=== PATIENT | female | born 1955 | race Caucasian/White ===

== ENCOUNTER → 2016-09-05 | Outpatient (CLI) | payer OTHER ==
[~2016-09-05] MED LIST: CALTRATE-600 W600 MG PO; COMPAZINE DPS5 MG PO; DECADRON-DPS4 MG PO; DEXAMETHASON2 MG PO; DIFLUCAN DPS150 MG PO; DULCOLAX-DPS10 MG PR; DURAGESIC DPS25 MCG TD; DURAGESIC50 MCG TD; FLEXERIL-DPS10 MG PO; HYDROCODONE 5MG/5 MG PO; INDERAL-DPS40 MG PO; KEFLEX-DPS500 MG PO; KEPPRA DPS500 MG PO; LEVAQUIN DPS750 MG PO; LINZESS145 MCG PO; LOVENOX DPS150 MG/ML SQ; MAALOX DPS30 ML PO; MEGACE DPS800 MG/20 PO; MIRALAX PACKET17 GM PO; MS CONTIN DPS15 MG PO; MSIR DPS15 MG PO; PRAVACHOL20 MG PO; PRILOSEC DPS20 MG PO; PROTONIX40 MG PO; PROZAC DPS20 MG PO; REMERON DPS15 MG PO; RITALIN-DPS5 MG PO; SENOKOT S1 TAB PO; SOLU-CORTEF100 MG PO; SURFAK DPS240 MG PO; TYLENOL DPS325 MG PO; VOTRIENT200 MG PO; WELLBUTRIN SR150 M1 PO; ZOFRAN4 M1 PO; ZOFRAN4 MG PO; [UNRECOGNIZED DRUG - OTHER] PO
== END | disposition home or self-care (01) ==
LOC: RAD.S 10:35
DX: C78.00 Secondary malignant neoplasm of unspecified lung (principal); C79.31 Secondary malignant neoplasm of brain; C79.51 Secondary malignant neoplasm of bone; C64.2 Malignant neoplasm of left kidney, except renal pelvis; R91.8 Other nonspecific abnormal finding of lung field

== ENCOUNTER 2016-09-06 13:08 | Inpatient (IN) | payer OTHER ==
[~2016-09-06] VITALS: Ht 175.3 cm; Wt 70.8 kg
--- NOTE | ~2016-09-06 | WND ---
ADMIT: 09/06/2016 RM/LOC: 302 [facility] MR#: [id number] [address] [address] [place] [address] Wound Care Clinic SEX: F AGE: 61 : 1955 DATE OF VISIT: 09/07/2016 TIME OF VISIT: 15 minutes. REASON FOR VISIT: Diagnosis of ulcers to her buttocks. HISTORY OF PRESENT ILLNESS: Brooklynn is a 61-year-old female, who was admitted through the emergency room yesterday with altered mental status secondary to urosepsis. She is currently residing at [facility] after recently being diagnosed with renal carcinoma with mets to the pelvis, brain, lungs, and retroperitoneum. Her daughter is currently at bedside and states that she fell recently and had horrible left hip pain and that is how she found out that she had the cancer. Her daughter is also aware that she does have some pressure injuries to her buttocks. Brooklynn currently denies any complaints of pain to the area unless she is moving around in bed. PAST MEDICAL HISTORY: 1. Depression. 2. Hyperlipidemia. 3. Gastroesophageal reflux. 4. History of pelvic ramus fracture. ALLERGIES: Penicillins, sulfa, and pseudoephedrine. CURRENT MEDICATIONS: 1. Caltrate 600 mg. 2. Dexamethasone 2 mg. 3. Inderal 40 mg. 4. Keppra 500 mg. 5. Linzess 145 mcg. 6. Megace 800 mg. 7. MiraLAX 17 g. 8. MS Contin 15 mg. 9. Paxil 20 mg. 10.Pravachol 20 mg. 11.Senokot. 12.Wellbutrin. 13.Lovenox. 14.NovoLog. 15.Duragesic 50 mcg patch. 16.Azactam. 17.Levaquin. 18.Levophed. 19.Protonix. SOCIAL HISTORY: Brooklynn is a 61-year-old, female. 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 She denies any tobacco use or alcohol use. FAMILY HISTORY: Negative for cancers. ADMIT: 09/06/2016 RM/LOC: 302 [facility] MR#: [id number] [address] [address] BROOKLYNN [place] [address] Wound Care Clinic SEX: F AGE: 61 : 1955 REVIEW OF SYSTEMS: She does report pain in that left lower extremity. She denies nausea, vomiting, or diarrhea. She denies chest pain, shortness of breath, or cough. PHYSICAL EXAMINATION: VITAL SIGNS: Blood pressure 94/60, pulse ox 94% on room air, pulse 94, respirations 11, and temperature 96.8. GENERAL: An alert 61-year-old female with a flat affect in no acute distress. She is examined in her bed in room #302. Assessment of her coccyx area reveals a full-thickness ulcer on the right and left side of her gluteal cleft measuring approximately 1 cm circumferential. Wound bed is yellow and dry. It is tender to palpation. There is no induration or fluctuance noted. No periwound erythema noted. ASSESSMENT: Quantity 2 stage III pressure injuries to the right and left side of gluteal cleft. PLAN: Staff will apply Sensi-Care to pressure injuries to the right and left- sided gluteal cleft 4 times daily and with any repositioning. They will apply a low air loss mattress overlay to her bed. They will reposition her every 2 hours from right to left side at a 30-degree tilt. I have asked that they please do not elevate the head of bed greater than 30 degrees for short amount of times with meals. WOCN will continue to follow while she is in the hospital. I would like to thank Dr. Trinidad for allowing us to participate in her care. Julianna Sanders APRN/ patty JOB #: [id number] CC: Desmond Guevara, Attending Physician Desmond Guevara, Family Physician
[~2016-09-06 13:08] MED LIST changes: -COMPAZINE DPS5 MG PO; -DIFLUCAN DPS150 MG PO; -KEFLEX-DPS500 MG PO; -LINZESS145 MCG PO; -MEGACE DPS800 MG/20 PO; -REMERON DPS15 MG PO; -RITALIN-DPS5 MG PO; -SOLU-CORTEF100 MG PO; -SURFAK DPS240 MG PO; -WELLBUTRIN SR150 M1 PO; -[UNRECOGNIZED DRUG - OTHER] PO
--- NOTE | 2016-09-11 09:04 | HP ---
ADMIT: 09/06/2016 RM/LOC: 302 [facility] MR#: [id number] [address] [address] [place]NN [facility]ON[facility]ALEZ [facility] [place] [address] History and Physical SEX: F AGE: 61 : 1955 Corrected: 09/07/2016 1135 eleazar DATE OF SERVICE: CHIEF COMPLAINT: Altered mental status. HISTORY OF PRESENT ILLNESS: Brooklynn is a 61-year-old white female, resident of [facility]. She went to the Oncology Clinic today and had an episode of altered mental status with unresponsiveness. Our clinic was contacted regarding possibility of a direct admission, but due to the fact she was a new patient and her past medical history was unknown, concerns regarding stability were noted, she ultimately was transferred to the ER for evaluation. On ER assessment, she was noted to have altered mental status and met criteria for sepsis. Chest x-ray and routine labs were obtained, and she was noted to meet UTI with sepsis criteria with known metastatic renal cell carcinoma and prior DVTs with elevated liver enzymes and hypokalemia and was started on IV antibiotics. Fluid boluses were administered, and she was admitted via sepsis protocols. At this time, she is awake and alert and very interactive and appropriate. She has a delayed speech and has to concentrate on responses, but appears to be in full control of her mental status. PAST MEDICAL HISTORY: Includes known metastatic renal cell carcinoma with mets to the pelvis, brain, lungs, and retroperitoneum with recent deep venous thromboses and a history of depression, hyperlipidemia, and reflux. MEDICATIONS: Listed and include: 1. Maalox. 2. Morphine. 3. Tylenol. 4. Zofran. 5. Bisac-Evac suppositories. 6. Cabozantinib. 7. Lovenox. 8. Fentanyl patch. 9. Omeprazole. 10.Dexamethasone. 11.Megace. 12.Paxil. 13.MiraLax. 14.Propranolol. 15.Calcium. 16.Levetiracetam. 17.Morphine. 18.Senna. 19.Pravastatin. 20.Linzess. ADMIT: 09/06/2016 RM/LOC: 302 [facility] MR#: [id number] [address] [address] YUDELKA YARELI BROOKLYN[place] [address] History and Physical SEX: F AGE: 61 : 1955 ALLERGIES: INCLUDE PENICILLIN AND SULFA. SOCIAL HISTORY: A 61-year-old white female. 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 She does not smoke and does no longer drink. States she used to drink socially when younger. FAMILY HISTORY: Noncontributory. REVIEW OF SYSTEMS: Remarkable for fatigue, previous cerebral hemorrhage with some delayed speech. She desires a full code at this time and appears to be competent and cognizant to make that decision. She has known metastatic renal cell and a prior pelvic fracture and DVTs along with some mild reflux. Remainder of review of systems is remarkable for severe depression with decreased appetite, and she has initiated therapy for that. PHYSICAL EXAMINATION: VITAL SIGNS: Include an initial temperature of 97.6, pulse 116, respiratory rate 15 with blood pressure 79/47. Current pulse 126, her blood pressure is 78/44. She is currently on vasopressors. GENERAL: On exam, she is alert, appears comfortable, lying in the bed, in no acute distress. HEENT: Pupils are reactive. Membranes are moist. HEART: Tachycardic without murmur. LUNGS: Clear. ABDOMEN: Soft with some minimal tenderness. No rigidity, guarding, or rebound. No hepatosplenomegaly. BREASTS, , AND RECTAL: Deferred. EXTREMITIES: Reveal some mild stasis dermatitis. No clubbing, cyanosis, or edema. NEURO: Grossly normal including light touch, strength, DTRs but of note her speech is slightly delayed, although she appears to be competent to make decisions. LABORATORY DATA: Labs include sodium 144, potassium 3.1, BUN 15, creatinine 1.1 with glucose 184, total protein 5.5, albumin 1.9. AST of 133, ALT is 31, magnesium 1.8. CPK 123, MB of 4.5 with troponin I of 0.113. INR is 1.7. White count 6.2, hemoglobin 14.6, platelet count 193,000. Lactic acid was 10.1 on ER assessment, it is down to 3.3 at this time. UA shows 25 wbc's with many bacteria. Chest x-ray shows no acute changes. ASSESSMENT: 1. Urinary tract infection with probable urosepsis. 2. Renal cell carcinoma with known metastatic lesions involving the brain, pelvis, lungs, and retroperitoneum. 3. Prior deep venous thrombosis. 4. Depression. 5. Elevated liver function tests. ADMIT: 09/06/2016 RM/LOC: 302 [facility] MR#: [id number] [address] [address] [place] [address] History and Physical SEX: F AGE: 61 : 1955 6. Hyperlipidemia. 7. Reflux. 8. Malnutrition. 9. Prior hemorrhagic cerebrovascular accident on old scans. PLAN: She is full code per the patient's request. She is currently on IV antibiotics and vasopressors. Critical-care consultation has been obtained. She has been started on the sepsis protocol. We will do Accu-Chek monitoring with sliding scale. We will proceed with further evaluation and management based on her course during the hospitalization. Desmond Guevara MD/ patty JOB #: [id number] CC: Desmond Guevara, Attending Physician Desmond Guevara, Family Physician Corrected: 09/07/2016 1135 eleazar
--- NOTE | 2016-09-11 10:29 | CO ---
ADMIT: 09/06/2016 RM/LOC: 302 [facility] MR#: [id number] [address] [address] [place] [address] Consultation SEX: F AGE: 61 : 1955 DATE OF CONSULTATION: 09/06/2016 ATTENDING PHYSICIAN: Desmond Guevara CONSULTING PHYSICIAN: Dandy Marcleino MD HISTORY OF PRESENT ILLNESS: This lady is admitted to the hospital with hypotensive shock from the ER. Nonsmoker, but has a rather significant medical history of wide spread metastatic renal cell carcinoma with bones, lung, brain with history of brain hemorrhage, seizure disorder, depression, hyperlipidemia and gastroesophageal reflux. She has had radiation to the brain and also to the acetabular area. She was getting prepared for possible nephrectomy. She does have DVT and has been on Lovenox at 1 mg/kg body weight subcutaneously daily. She is in the intensive care unit with the blood pressure in the 70s after 3 L of fluid resuscitation and started on levofloxacin and Rocephin also. Her laboratory investigation shows a sodium of 144, potassium was 3.1, but she is receiving 40 mEq of potassium from Dr. Guevara. Chloride 102, urea 15, creatinine 1.1, albumin 1.9, LDH 521, AST was 133, INR 1.7, lactate was 10.1, it has gone down to 3.1 after the fluid resuscitation. Her hemoglobin is 8.5, platelets 193, white count 6.2. Urine cloudy with white cells 25. On my evaluation, she is awake. Response was appropriate, but somewhat slow and informations were not accurate because she could not remember getting radiation to the head or to the acetabular area, which I recovered from the note from Dr. Sumit Trinidad on her dismissal from 01/26. The plan was for nephrectomy once she is stable. PHYSICAL EXAMINATION: EXTREMITIES: She has no edema. Her skin is dry and low turgor. There was no calf tenderness. LYMPH: Could not feel any lymphadenopathy. She is weak allover. RESPIRATIONS: Trachea is in the midline. CHEST: Clear. No heart murmur. ABDOMEN: Has several lumpy areas from subcu Lovenox. No distinct organomegaly. Bowel sounds present. DIAGNOSTIC DATA: Chest x-ray is clear. IMPRESSION: 1. Hypovolemic shock, possible urosepsis. 2. Metastatic renal cell carcinoma to the brain, lung, and bones. Status post radiation to the brain and to the acetabular are. 3. Depression. 4. Seizure disorder. 5. Deep vein thrombosis. 6. Hyperlipidemia. ADMIT: 09/06/2016 RM/LOC: 302 [facility] MR#: [id number] [address] [address] [place] [address] Consultation SEX: F AGE: 61 : 1955 7. Gastroesophageal reflux. PLAN: I am planning for another liter of fluid, and we will get her started on Levophed instead of dopamine because her heart rate is already in the 139 range with the blood pressure in the mid 70s. Her room air oxygen saturation was 90%-92%. She will be on oxygen. I will get a cortisol level. For the time being, I am going to give her stress dose steroid, changing the Rocephin to Zosyn in addition to the levofloxacin. We will add GI bleeding prophylaxis with Protonix. Overall prognosis seems very guarded and long-term prognosis is certainly poor. Discussed with Dr. Guevara. Discussed with the RN. Dandy Marcelino MD/ patty JOB #: [id number] CC: Desmond Guevara, Attending Physician Desmond Guevara, Family Physician Desmond Guevara MD
[2016-09-12] MEDS ORDERED: KEFLEX-DPS500 MG PO (12:01)
[2016-09-12] MEDS ORDERED: [UNRECOGNIZED DRUG - OTHER] PO (12:02)
[2016-09-12] MEDS ORDERED: COMPAZINE DPS5 MG PO (12:03)
[2016-09-12] MEDS ORDERED: SURFAK DPS240 MG PO (12:03)
[2016-09-12] MEDS ORDERED: WELLBUTRIN SR150 M1 PO (12:04)
[2016-09-12] MEDS ORDERED: MEGACE DPS800 MG/20 PO (12:05)
[2016-09-12] MEDS ORDERED: DIFLUCAN DPS150 MG PO (12:05)
[2016-09-12] MEDS ORDERED: LINZESS145 MCG PO (12:05)
[2016-09-12] MEDS ORDERED: REMERON DPS15 MG PO (12:07)
[2016-09-12] MEDS ORDERED: SOLU-CORTEF100 MG PO (12:07)
[2016-09-12] MEDS ORDERED: RITALIN-DPS5 MG PO (12:08)
--- NOTE | 2016-09-16 06:57 | ER ---
ADMIT: 09/06/2016 RM/LOC: 302 [facility] MR#: [id number] [address] [address] ISELA GONZALEZ [place], [place] [address] Emergency Room Report SEX: F AGE: 61 : 1955 DATE: 09/06/2016 CHIEF COMPLAINT: Low blood pressure, decreased level of alertness. HISTORY OF PRESENT ILLNESS: The patient is a 61-year-old female, who has a diagnosis of renal cancer with metastasis to the brain, who is currently undergoing chemotherapy regimen. She has had radiation in the past from my understanding. Apparently, she has had significant problems with p.o. intake and staying hydrated and the decision made to switch her chemo regimen earlier in August in attempts to see if she will be able to tolerate p.o. better. Apparently, she is not making any improvement and her family states that she is really not ate or drank much of anything for the past 4 to 5 days. She has had a history of urinary tract infections in the past too. From my understanding, she has had no recent fevers. REVIEW OF SYSTEMS: Unable to obtain initial review of systems due to the patient's decreased mental status on arrival. PAST MEDICAL HISTORY: Significant for renal cancer with mets to the brain, seizure disorder, and hyperlipidemia. MEDICATIONS: See T-sheet. ALLERGIES: PENICILLIN AND SULFA. SOCIAL HISTORY: Denies smoking, drug, or alcohol use. PHYSICAL EXAMINATION: VITAL SIGNS: Initial blood pressure is 81/64, pulse of 112, and temp 99.2. HEENT: Head is atraumatic. Pupils are equal, round, and reactive to light. The patient had difficulty tracking initially. Airway is patent. LUNGS: Clear to auscultation. HEART: Tachycardic. ABDOMEN: Soft. SKIN: Warm and dry. She had equal pulses in all 4 extremities. She had 1+ pedal edema in bilateral lower extremities. Left lower extremity reveals that she has a flexion at the left hip, which family states is always the case as she has had some erosion into her left hip from her renal cancer. LABORATORY DATA: CBC was normal. CK is 123, MB is 4.5. Troponin 0.113. Lactic acid is 10.1. Calcium 8.3. INR 1.7. Potassium is low at 3.1. EKG shows sinus tachycardia, rate of 146. There is some slight T-wave depression in the lateral leads. Chest x-ray shows nothing acute. EMERGENCY DEPARTMENT COURSE: The patient arrived. Her vitals show that she was significantly hypotensive and decreased mental status. We went ahead and started our sepsis protocol on the patient. She was difficult to get an IV. We did get an IV in her right upper extremity and in order to have better venous access, we had a midline placed in the patient's left upper extremity. ADMIT: 09/06/2016 RM/LOC: 302 [facility] MR#: [id number] [address] [place] [address] [place]UDELKA [place] [address] Emergency Room Report SEX: F AGE: 61 : 1955 She was given fluid resuscitation following 30 mL/kg protocol for her severe sepsis in the Emergency Department. Her blood pressure did respond nicely to initial fluid resuscitation. Once we got cultures obtained, we started Levaquin IV as she has a penicillin allergy. Her blood pressure did drop some after we started the Levaquin and I ordered an additional liter of normal saline fluid bolus as history is significant for decreased p.o. intake and intake of fluids in the past several days and I believe she is quite dry. At this point, the family reported the patient was a full code at this time and I did broach the subject with her about considering DNR/DNI with her renal cell cancer with mets to the brain. I contacted Dr. Guevara, who apparently just recently had accepted the patient into his care. She normally saw Dr. Lynn until now. The patient is in critical condition at the time of admission and one hour of critical care time was spent on this patient. DIAGNOSES: 1. Severe sepsis. 2. Urinary tract infection. 3. Hypokalemia. 4. Hypotension. 5. Lactic acidosis. Matt Herrera MD/ patty JOB #: [id number] CC: Desmond Guevara MD, Attending Physician Desmond Guevara MD, Family Physician
--- NOTE | 2016-10-22 11:57 | DS ---
ADMIT: 09/06/2016 RM/LOC: 413 [facility] MR#: [id number] [address] [address] [place] [address] General Discharge Summary SEX: F AGE: 61 : 1955 ADMISSION DATE: 09/06/2016 DISCHARGE DATE: 09/11/2016 INDICATION FOR HOSPITALIZATION: Brooklynn is a 61-year-old, white female, resident of [facility], recently seen in Oncology with episodes of altered mental status and unconsciousness. She was admitted via the sepsis protocol. She was noted to have UTI with possible sepsis with known metastatic renal cell carcinoma, and prior DVTs, and elevated liver enzymes with hypokalemia. She was started on IV fluids. Electrolyte replacement therapy was ordered and sepsis protocol was followed. HOSPITAL COURSE: On admission, Brooklynn was admitted to [place] with a UTI and presumed sepsis. She was started on Levaquin and Rocephin. IV fluids and electrolytes were ordered. Serial lab and electrolyte monitoring was ordered. Dopamine was started for hypotension. IV fluid boluses were repeatedly given and Oncology was consulted. Antiemetics were ordered. A PICC line was placed. Accu-Chek monitoring were obtained. Fluid and electrolyte adjustments were made. Os-Devang and vitamin D was ordered and Wellbutrin was started for some depressive symptoms. Concern regarding her nutrition and poor oral intake were noted and addressed. By September 08, vital signs were stable, she was afebrile. Electrolytes were normal and renal function was normal. Blood cultures were negative. Urine culture showed greater than 100,000 colonies of gram-positive organisms. Chest x-ray showed improved aeration, and the patient was overall stable to improve. She had been weaned off pressors, was transferred to telemetry. Accu-Cheks were discontinued. Her antidepressants were continued and Ritalin was started along with Remeron for her depression. Surfacer Operator was involved in the nutritional discussions. Yeast therapy was given. On September 11, vital signs were stable, she was afebrile. Blood counts were stable. Urine culture showed Strep anginosus. Arrangements for transfer to the alf were made and confirmed sensitive to Keflex. Please include a copy of her discharge med list from the [facility]. At this point, discharge antibiotic was with Keflex 500 mg two b.i.d. for 10 days. LABORATORY AND X-RAY DATA: Includes September 11; white count 4.4, hemoglobin 9.8, platelet count of 83,000. On September 08; white count 4.2, hemoglobin 9.9, platelet count of 121,000. On September 06; white count of 6.2, hemoglobin 14.6, platelet count of 193,000. INR on September 06 is 1.7. On September 06; UA shows 2+ ketones, 2+ leukocytes, 25 wbc's, and many bacteria. On September 11; sodium is 140, potassium 3.4, BUN less than 1 with creatinine 0.2, and glucose 74. On September 07; sodium of 145, potassium 4.3, BUN 11, creatinine 0.4 with glucose of 218, calcium 6.6. Magnesium on September 06 was 1.8. Vanco trough was high at 12.8 on September 11. Blood cultures were negative on admission on ADMIT: 09/06/2016 RM/LOC: 413 [facility] MR#: [id number] [address] [place] [id number] [place] [address] General Discharge Summary SEX: F AGE: 61 : 1955 September 06. Urine culture shows greater than 100,000 colonies of Streptococcus anginosus. On September 06, CT of the abdomen and pelvis shows decreased large left renal mass. Left hemipelvis osseous metastases with pathologic fracture, stable. Chest x-ray showed no acute changes on September 06. EKG shows sinus tach on admission. Discharge was Strep anginosus urinary tract infection with presumed septicemia. Renal cell carcinoma with known metastases and prior deep venous thrombosis, depression, elevated liver enzymes, hyperlipidemia, reflux, malnutrition, and prior hemorrhagic cerebrovascular accident. Procedures include IV antibiotics, fluids and electrolytes, and vasopressors. Please see her hospital record for the details. Desmond Guevara MD/ patty JOB #: [id number] CC: Desmond Guevara MD, Attending Physician Desmond Guevara MD, Family Physician
== END 2016-09-11 15:37 | DRG 871 ==
LOC: ER 13:08 → 3ICU 15:48 → 4PCU 09-09 04:05
PROVIDERS: ADMIT Family Medicine
PROC: 02HV33Z Insertion of Infusion Device into Superior Vena Cava, Percutaneous Approach (ICD-10-PCS; principal; 2016-09-07)
DX: A40.8 Other streptococcal sepsis (principal); R57.1 Hypovolemic shock; L89.313 Pressure ulcer of right buttock, stage 3; E46 Unspecified protein-calorie malnutrition; C78.00 Secondary malignant neoplasm of unspecified lung; L89.323 Pressure ulcer of left buttock, stage 3; E87.0 Hyperosmolality and hypernatremia; N39.0 Urinary tract infection, site not specified; C79.31 Secondary malignant neoplasm of brain; C79.51 Secondary malignant neoplasm of bone; C78.6 Secondary malignant neoplasm of retroperitoneum and peritoneum; R44.3 Hallucinations, unspecified; C64.9 Malignant neoplasm of unspecified kidney, except renal pelvis; R41.0 Disorientation, unspecified; K12.30 Oral mucositis (ulcerative), unspecified; B95.4 Other streptococcus as the cause of diseases classified elsewhere; E87.6 Hypokalemia; G40.909 Epilepsy, unspecified, not intractable, without status epilepticus; E78.5 Hyperlipidemia, unspecified; F32.9 Major depressive disorder, single episode, unspecified; K21.9 Gastro-esophageal reflux disease without esophagitis; I69.198 Other sequelae of nontraumatic intracerebral hemorrhage; Z86.718 Personal history of other venous thrombosis and embolism